=== PATIENT | female | born 1965 | race Caucasian/White ===

== ENCOUNTER 2018-07-29 13:40 | Inpatient (IN) | payer OTHER ==
[~2018-07-29] VITALS: Ht 152.4 cm; Wt 76.2 kg
[2018-08-02] MEDS ORDERED: METFORMIN HCL500 M1 PO (09:14)
[2018-08-02] MEDS ORDERED: DIETHYLPROPION75 MG PO (09:14)
== END 2018-08-03 09:53 | DRG 743 ==
LOC: OB/GYN 08-01 06:00 → O/R 08-01 06:00 → OB/GYN 08-01 07:00
PROVIDERS: ADMIT Obstetrics & Gynecology
PROC: 0UT20ZZ Resection of Bilateral Ovaries, Open Approach (ICD-10-PCS; 2018-08-01)
PROC: 0UT70ZZ Resection of Bilateral Fallopian Tubes, Open Approach (ICD-10-PCS; 2018-08-01)
PROC: 0USG0ZZ Reposition Vagina, Open Approach (ICD-10-PCS; 2018-08-01)
PROC: 0UT90ZZ Resection of Uterus, Open Approach (ICD-10-PCS; principal; 2018-08-01 07:00)
DX: D25.1 Intramural leiomyoma of uterus (principal); N80.0 Endometriosis of uterus; N83.292 Other ovarian cyst, left side; N83.291 Other ovarian cyst, right side; N72 Inflammatory disease of cervix uteri; E66.8 Other obesity; R73.01 Impaired fasting glucose